=== PATIENT | male | born 1950 | race Caucasian/White ===

== ENCOUNTER 2022-03-11 14:41 | Emergency (ER) | payer OTHER ==
[~2022-03-11] VITALS: Ht 177.8 cm; Wt 131.5 kg
[2022-03-11] MEDS ORDERED: LIPITOR20 MG PO (15:00)
[2022-03-11] MEDS ORDERED: HYDROCODON-ACE1 EA11 PO (16:53)
== END 2022-03-11 17:22 | disposition home or self-care (01) ==
LOC: ED 14:41
DX: S52.121A Displaced fracture of head of right radius, initial encounter for closed fracture (principal); S52.122A Displaced fracture of head of left radius, initial encounter for closed fracture; W01.10XA Fall on same level from slipping, tripping and stumbling with subsequent striking against unspecified object, initial encounter; I10 Essential (primary) hypertension; E78.5 Hyperlipidemia, unspecified; Z79.899 Other long term (current) drug therapy
CPT/HCPCS: 29105; 73080; 99283-25